=== PATIENT | female | born 1945 | race Caucasian/White ===

== ENCOUNTER → 2017-01-11 | Outpatient (CLI) | payer MEDICARE, OTHER ==
[~2017-01-11] MED LIST: FERR-67 PO; FLUO10CA PO; MULT-806 PO; ROPI0.5T5 PO; ROSU10TA13 PO; ZOLP-107 PO
== END ==
LOC: WC.BC 15:39
DX: Z12.31 Encounter for screening mammogram for malignant neoplasm of breast (principal); N64.59 Other signs and symptoms in breast
CPT/HCPCS: 77063; G0202